=== PATIENT | female | born 1955 | race Caucasian/White ===

== ENCOUNTER 2019-10-13 17:45 | Emergency (ER) | payer BC, MEDICARE ==
[2019-10-13] MEDS ORDERED: cefTRIAXone 1 GM in Sodium Chloride 0.9% 50 ML IV ONE (19:39)
[2019-10-13] MEDS ORDERED: Sodium Chloride 0.9% 1,000 ML IV SCH (19:45)
--- NOTE | 2019-10-13 19:46 | EDM.PDOC ---
ED HPI GENERAL MEDICAL PROBLEM - General Chief Complaint: Fever Stated Complaint: CHILLS, VOMITING Time Seen by Provider: 10/13/19 19:26 Source of Information: Reports: Patient, Family () History Limitations: Reports: No Limitations - History of Present Illness INITIAL COMMENTS - FREE TEXT/NARRATIVE: chief complaint: nausea, vomiting, fever and chills This is a 64 year old female present to the ER with her . Reports two days of nausea, vomiting, dry heaves, fever and chills for the past two day. last meal was last night >24 hours ago. feeling weak and tired. denies cough, dysuria, abdominal pain. does report multi tick bites and attached ticks in the past few weeks. past history of lung cancer 21 years ago, seen annual by Oncology. Onset Date: 10/11/19 Duration: Day(s): (two) Location: Reports: Generalized Severity: Moderate Improves with: Reports: None Worsens with: Reports: None Context: Reports: Other (multi tick bites in the past few weeks.) Associated Symptoms: Reports: Fever/Chills, Headaches, Loss of Appetite, Nausea/Vomiting, Weakness Treatments INDUSTRIAL RELATIONS SPECIALIST: Reports: Acetaminophen Anterior Headache Pain Score (Numeric/FACES): 8 - Related Data Allergies Allergy/AdvReac Type Severity Reaction Status Date / Time No Known Allergies Allergy Verified 10/13/19 20:02 Home Meds: Home Meds NK [No Known Home Meds] 10/13/19 [History] Social & Family History - Living Situation & Occupation Living situation: Reports: (recent move from [facility] to [facility].) ED ROS GENERAL - Review of Systems Review Of Systems: See Below Constitutional: Reports: Fever, Chills, Malaise, Weakness, Fatigue, Decreased Appetite HEENT: Reports: No Symptoms Respiratory: Reports: No Symptoms Cardiovascular: Reports: No Symptoms Endocrine: Reports: No Symptoms GI/Abdominal: Reports: Decreased Appetite (last meal >24 hours ago), Nausea, Vomiting : Reports: No Symptoms Musculoskeletal: Reports: No Symptoms Skin: Reports: No Symptoms Neurological: Reports: No Symptoms Psychiatric: Reports: No Symptoms Hematologic/Lymphatic: Reports: No Symptoms Immunologic: Reports: No Symptoms (denies any allergies.) ED EXAM, GENERAL - Physical Exam Exam: See Below Exam Limited By: Other (neat and well groomed. no distress) General Appearance: Alert, WD/WN, No Apparent Distress Eye Exam: Bilateral Eye: EOMI, PERRL Ears: Normal External Exam, Normal Canal, Hearing Grossly Normal, Normal TMs Ear Exam: Bilateral Ear: Auricle Normal, Canal Normal, TM normal Nose: Normal Inspection, Normal Mucosa, No Blood Throat/Mouth: Normal Inspection, Normal Lips, Normal Teeth, Normal Gums, Normal Oropharynx, Normal Voice, No Airway Compromise Head: Atraumatic, Normocephalic Neck: Normal Inspection, Supple, Non-Tender, Full Range of Motion Respiratory/Chest: No Respiratory Distress, Lungs Clear, Normal Breath Sounds, No Accessory Muscle Use, Chest Non-Tender, Other (old well healed surgical scar note to left back) Cardiovascular: Normal Peripheral Pulses, Regular Rate, Rhythm, No Edema, No Murmur, No Rub Peripheral Pulses: 2+: Radial (L), Radial (R), Dorsalis Pedis (L), Dorsalis Pedis (R) GI/Abdominal: Normal Bowel Sounds, Soft, Non-Tender, No Organomegaly, No Distention, No Abnormal Bruit, No Mass, Pelvis Stable (Female) Exam: Deferred Rectal (Female) Exam: Deferred Back Exam: Normal Inspection, Full Range of Motion, Other (old surgical scar to left upper back follows the line of the scapula) Extremities: Normal Inspection, Normal Range of Motion, Non-Tender, No Pedal E mitchell, Normal Capillary Refill Neurological: Alert, Oriented, CN II-XII Intact, Normal Cognition, Normal Gait, Normal Reflexes, No Motor/Sensory Deficits Psychiatric: Normal Affect, Normal Mood Skin Exam: Warm, Dry, Intact, Normal Color, No Rash Lymphatic: No Adenopathy Course - Vital Signs Last Recorded V/S: Last Vital Signs Temp 37.0 C 10/13/19 20:10 Pulse 66 10/13/19 20:10 Resp 18 10/13/19 20:10 BP 167/66 H 10/13/19 20:10 Pulse Ox 99 10/13/19 20:10 - Orders/Labs/Meds Orders: Active Orders 24 hr Category Date Time Status BABESIA MICROTI ANTIBODY PANEL Urgent Lab 10/13/19 20:20 Received HUMAN GRANULOCYTIC HARSHA-HGE Urgent Lab 10/13/19 20:20 Received LYME, TOTAL AB TEST/REFLEX Urgent Lab 07/02/20 20:20 Received UA W/MICROSCOPIC [URIN] Urgent Lab 10/13/19 19:39 Ordered Isolation [COMM] Routine Oth 10/13/19 19:41 Ordered Labs: Laboratory Tests 10/13/19 10/13/19 Range/Units 19:39 19:39 WBC 5.6 (4.5-11.0) K/uL RBC 4.04 (3.30-5.50) M/uL Hgb 12.7 (12.0-15.0) g/dL Hct 36.8 (36.0-48.0) % MCV 91 (80-98) fL MCH 31 (27-31) pg MCHC 35 (32-36) % Plt Count 136 L (150-400) K/uL Neut % (Auto) 72 H (36-66) % Lymph % (Auto) 16 L (24-44) % [place] % (Auto) 11 H (2-6) % Eos % (Auto) 1 L (2-4) % Baso % (Auto) 0 (0-1) % Sodium 128 L (140-148) mmol/L Potassium 3.8 (3.6-5.2) mmol/L Chloride 94 L (100-108) mmol/L Carbon Dioxide 26 (21-32) mmol/L Anion Gap 11.8 (5.0-14.0) mmol/L BUN 14 (7-18) mg/dL Creatinine 0.7 (0.6-1.0) mg/dL Est Cr Clr Drug Dosing 60.46 mL/min Estimated GFR (MDRD) > 60 (>60) Glucose 106 (74-106) mg/dL Calcium 8.6 (8.5-10.1) mg/dL Total Bilirubin 1.0 (0.2-1.0) mg/dL AST 25 (15-37) U/L ALT 29 (12-78) U/L Alkaline Phosphatase 59 (46-116) U/L Total Protein 6.6 (6.4-8.2) g/dL Albumin 3.7 (3.4-5.0) g/dL Globulin 2.9 (2.3-3.5) g/dL Albumin/Globulin Ratio 1.3 (1.2-2.2) Meds: Medications Discontinued Medications Generic Name Dose Route Start Last Admin Trade Name Freq PRN Reason Stop Dose Admin Ceftriaxone Sodium 1 gm/ 50 mls @ 100 mls/hr 10/13/19 19:39 10/13/19 20:27 Sodium Chloride IV 10/13/19 20:08 100 mls/hr ONETIME ONE Administration Sodium Chloride 1,000 mls @ 999 mls/hr 10/13/19 19:45 10/13/19 20:29 Normal Saline IV 999 mls/hr ASDIRECTED ANA LAURA Administration Lorazepam 1 mg 10/13/19 21:08 10/13/19 22:03 Ativan IVPUSH 10/13/19 21:09 1 mg ONETIME ONE Administration Ondansetron HCl 4 mg 10/13/19 19:52 10/13/19 20:26 Zofran IVPUSH 10/13/19 19:53 4 mg ONETIME ONE Administration - Re-Assessments/Exams Free Text/Narrative Re-Assessment/Exam: 10/13/19 19:50 Labs: order CBC, CMP, URINE WITH MICRO, TICK PANEL, INFLUENZA A&B Meds: Normal Saline 1 liter over one hours, IV Rocephin 1 gram Meds: Zofran 4mg IV will await results, suspect Tick born illness and Mrs. Guillen agree with plan of care. 10/13/19 21:01 patient still with nausea, vomiting and headache declines any narcotics due to vomiting will order Ativan 1 mg IV labs more consistent with tick borne illness will discharge with Doxy 100mg po bid and follow up in Primary Care. Departure - Departure Time of Disposition: 22:20 Disposition: Home, Self-Care 01 Condition: Good Clinical Impression: Tick bite of multiple sites, Tick-borne disease - Discharge Information *PRESCRIPTION DRUG MONITORING PROGRAM REVIEWED*: Not Applicable *COPY OF PRESCRIPTION DRUG MONITORING REPORT IN PATIENT DAVID: Not Applicable Instructions: Tick Bite Information, Adult, [id number], Ehrlichiosis and Anaplasmosis, [id number] Referrals: PCP,None [Primary Care Provider] - Forms: ED Department Discharge Care Plan Goals: Tickborne illness-suspected -Tick panel pending. -Doxy 100mg po bid x 14 days -Zofran 4mg for nausea -follow up in Primary Care for recheck in 1-2 days -return to ER if not improved or symptoms worsen. fever,chill, nausea, vomiting, rash, or any concerns. Sepsis Event Note (ED) - Focused Exam Vital Signs: Vital Signs Temp Pulse Resp BP Pulse Ox 10/13/19 20:10 37.0 C 66 18 167/66 H 99 10/13/19 19:22 37.0 C 66 18 167/66 H 99 - Problem List & Annotations (1) Tick bite of multiple sites SNOMED Code(s): 33335479 Code(s): W57.XXXA - BIT/STUNG BY NONVENOM INSECT & OTH NONVENOM ARTHROPODS, INIT Status: Acute Priority: High (2) Tick-borne disease SNOMED Code(s): 68003101 Code(s): B88.2 - OTHER ARTHROPOD INFESTATIONS Status: Acute Priority: High - Problem List Review Problem List Initiated/Reviewed/Updated: Yes - My Orders Last 24 Hours: My Active Orders 10/13/19 19:39 UA W/MICROSCOPIC [URIN] Urgent 10/13/19 19:41 Isolation [COMM] Routine 10/13/19 20:20 BABESIA MICROTI ANTIBODY PANEL Urgent HUMAN GRANULOCYTIC HARSHA-HGE Urgent LYME, TOTAL AB TEST/REFLEX Urgent - Assessment/Plan Last 24 Hours: My Active Orders 10/13/19 19:39 UA W/MICROSCOPIC [URIN] Urgent 10/13/19 19:41 Isolation [COMM] Routine 10/13/19 20:20 BABESIA MICROTI ANTIBODY PANEL Urgent HUMAN GRANULOCYTIC HARSHA-HGE Urgent LYME, TOTAL AB TEST/REFLEX Urgent Plan: Tickborne illness-suspected -Tick panel pending. -Doxy 100mg po bid x 14 days -Zofran 4mg for nausea -follow up in Primary Care for recheck in 1-2 days -return to ER if not improved or symptoms worsen. fever,chill, nausea, vomiting, rash, or any concerns.
[2019-10-13] MEDS ORDERED: Ondansetron 4 MG/2 ML SDV IVPUSH ONE (19:52)
[2019-10-13] MEDS ORDERED: LORazepam 2 MG/ML SDV IVPUSH ONE (21:08)
[2019-10-17 13:10] LABS: LYME IGG/IGM AB <0.91 ISR (0.00-0.90)
[2019-10-17 14:09] LABS: HGE IGG TITER Negative (Neg:<1:64); HGE IGM TITER Negative (Neg:<1:20)
[2019-10-17 16:10] LABS: BABESIA MICROTI IGG <1:10 (Neg:<1:10); BABESIA MICROTI IGM <1:10 (Neg:<1:10)
== END 2019-10-13 22:36 | disposition home or self-care (01) ==
LOC: JP.ED 17:45
DX: A93.8 Other specified arthropod-borne viral fevers (principal)
CPT/HCPCS: 36415; 80053; 85025; 86618; 86666; 86753; 87804; 96365; 96375; 99284; J0696; J2060; J2405; J7030; J7050

== ENCOUNTER 2024-11-06 09:58 | Emergency (ER) | payer MEDICARE, BC | END 2024-11-06 13:14 | disposition home or self-care (01) | LOC: JP.ED 09:58 | DX: S60.211A Contusion of right wrist, initial encounter (principal); Z88.5 Allergy status to narcotic agent; Z79.51 Long term (current) use of inhaled steroids; Z79.82 Long term (current) use of aspirin; Z79.899 Other long term (current) drug therapy; W22.8XXA Striking against or struck by other objects, initial encounter | CPT/HCPCS: 73110-RT; 99283 ==